=== PATIENT | female | born 1955 | race Two or more races ===

== ENCOUNTER 2017-06-26 23:47 | Inpatient (IN) | payer OTHER ==
[2017-06-27] MEDS ORDERED: NTG 50 MG/D5W250 ML BOTTL 250 ML IV ONE ×2 (00:07→00:30)
[2017-06-27] MEDS ORDERED: NITROGLYCERIN 0.4 MG/TAB BOTTLE ONE (00:07)
[2017-06-27] MEDS ORDERED: FUROSEMIDE 40 MG/4 ML VIAL ONE (00:27)
[2017-06-27] MEDS ORDERED: FUROSEMIDE 40 MG/4 ML VIAL IV ONE (00:30)
[2017-06-27] MEDS ORDERED: ASPIRIN 325 MG TABLET PO ONE (00:30)
[2017-06-27] MEDS ORDERED: NITROGLYCERIN 0.4 MG/TAB BOTTLE SL ONE (00:30)
[2017-06-27] MEDS ORDERED: HYDR-552 PO (00:36)
[2017-06-27] MEDS ORDERED: DIAZ5TAB4 PO (00:36)
[2017-06-27] MEDS ORDERED: DIVA500T7 PO (00:36)
[2017-06-27] MEDS ORDERED: MULT-1094 PO (00:36)
[2017-06-27] MEDS ORDERED: TAMS0.4C34 PO (00:36)
[2017-06-27] MEDS ORDERED: LEVO25TA7 PO (00:36)
[2017-06-27] MEDS ORDERED: MELO-264 PO (00:36)
[2017-06-27] MEDS ORDERED: MULT-1160 PO (00:36)
[2017-06-27] MEDS ORDERED: ATEN50TA PO (00:36)
[2017-06-27] MEDS ORDERED: PROPOFOL 100 ML IV ONE ×2 (00:47→01:00)
[2017-06-27] MEDS ORDERED: FENTANYL PF 100MCG/2ML AMPUL ONE (00:47)
[2017-06-27] MEDS ORDERED: ROCURONIUM BROMIDE 100 MG/10 ML VIAL IV ONE (01:00)
[2017-06-27] MEDS ORDERED: ETOMIDATE 2 MG/ML VIAL IV ONE ×2 (01:00→09:21)
[2017-06-27] MEDS ORDERED: ASPIRIN 300 MG/SUPP.RECT RC SCH (01:00)
[2017-06-27] MEDS ORDERED: FENTANYL PF 100MCG/2ML AMPUL IV ONE (01:00)
[2017-06-27] MEDS ORDERED: IV NS 0.9% 1,000 ML BAG IV ONE (01:30)
[2017-06-27] MEDS ORDERED: ASPIRIN 300 MG/SUPP.RECT RC ONE (01:40)
[2017-06-27] MEDS ORDERED: MORPHINE SULFATE INJ 2 MG/ML DISP.SYRIN IV PRN ×3 (02:30→10:30)
[2017-06-27] MEDS ORDERED: ONDANSETRON HCL/PF 4 MG/2 ML VIAL IVP PRN (02:30)
[2017-06-27] MEDS ORDERED: ACETAMINOPHEN 650 MG/SUPP.RECT RC PRN (02:30)
[2017-06-27] MEDS ORDERED: Z GUARD REMEDY 2 OZ OINT TP PRN (02:30)
[2017-06-27] MEDS ORDERED: BUMETANIDE INJ 8 MG in IV NS 0.9% 48 ML IV ONE (02:30)
[2017-06-27] MEDS ORDERED: POTASSIUM CHLORIDE 20 MEQ POWDER PACKET NG ONE (03:00)
[2017-06-27] MEDS ORDERED: METOPROLOL TARTRATE INJ 5 MG/5 ML AMPUL IVP PRN (03:00)
[2017-06-27] MEDS ORDERED: BUMETANIDE INJ 0.25 MG/ML VIAL ONE ×2 (03:07→03:08)
[2017-06-27] MEDS ORDERED: ENOXAPARIN SODIUM 80 MG/0.8 ML DISP.SYRIN SQ ONE (03:07)
[2017-06-27] MEDS ORDERED: POTASSIUM CHLORIDE 20 MEQ POWDER PACKET ONE (03:08)
[2017-06-27] MEDS: ENOXAPARIN SODIUM 80 MG/0.8 ML DISP.SYRIN SQ SCH ×3 (03:10→21:45)
[2017-06-27] MEDS: PROPOFOL 100 ML IV PRN ×3 (03:12→13:44)
[2017-06-27] MEDS ORDERED: NITROGLYCERIN PACKET 1 GM PACKET ONE (05:16)
[2017-06-27] MEDS ORDERED: DOBUTamine 250 MG in IV D5W 230 ML IV PRN (05:30)
[2017-06-27] MEDS ORDERED: DOBUTamine 12.5 MG/ML VIAL IV ONE ×2 (05:33→05:58)
[2017-06-27] MEDS ORDERED: NITROGLYCERIN PACKET 1 GM PACKET TOP SCH (06:00)
[2017-06-27] MEDS ORDERED: DoBUTamine 500 MG/250 ML PIGGYBACK IV PRN (06:00)
[2017-06-27] MEDS ORDERED: NOREPINEPHRINE 4 MG/4 ML AMPUL IV ONE ×2 (06:37→06:41)
[2017-06-27] MEDS: NOREPINEPHRINE 16 MG in IV D5W 500 ML IV PRN ×3 (06:44→17:17)
[2017-06-27] MEDS ORDERED: DOBUTamine 500 MG in IV D5W 210 ML IV PRN (07:30)
[2017-06-27] MEDS: PANTOPRAZOLE 40 MG VIAL IV SCH (08:13)
[2017-06-27] MEDS: LEVOTHYROXINE SODIUM 25 MCG TABLET NG SCH (08:13)
[2017-06-27] MEDS ORDERED: ASPIRIN 81 MG TAB.CHEW GT SCH (09:00)
[2017-06-27] MEDS: Magnesium 1GM/D5W 100ML PREMIX 100 ML IV SCH ×2 (09:12→10:18)
[2017-06-27] MEDS ORDERED: ROCURONIUM BROMIDE 50 MG/5 ML IV ONE (09:21)
[2017-06-27] MEDS ORDERED: BUMETANIDE INJ 4 MG in IV NS 0.9% 24 ML IV ONE (10:00)
[2017-06-27] MEDS ORDERED: Magnesium 1GM/D5W 100ML PREMIX 100 ML IV SCH (10:00)
[2017-06-27] MEDS ORDERED: VANCOMYCIN 1 GM in IV D5W 250 ML IV ONE (10:00)
[2017-06-27] MEDS ORDERED: PANTOPRAZOLE 40 MG VIAL IV SCH (10:00)
[2017-06-27] MEDS ORDERED: BUMETANIDE INJ 1 MG in IV NS 0.9% 40 ML IV ONE (10:00)
[2017-06-27] MEDS ORDERED: LEVOFLOXACIN 500 MG /D5W 100ML 500 MG in PREMIX 1 EA IV ONE (10:00)
[2017-06-27] MEDS ORDERED: DOPamine 800 MG in IV D5W 250 ML IV PRN (10:30)
[2017-06-27] MEDS ORDERED: ZOSYN IVPB 3.375 G in IV D5W 50ml IV SCH (11:00)
[2017-06-27] MEDS: PHENYLEPHRINE 80 MG in IV D5W 250 ML IV PRN ×3 (12:03→21:46)
[2017-06-27] MEDS: MORPHINE SULFATE INJ 4 MG/ML DISP.SYRIN IV PRN ×3 (12:43→19:20)
[2017-06-27] MEDS: PIPERACILLIN /TAZOBACTAM 3.375 G in IV D5W 50 ML IV SCH ×3 (12:48→23:59)
[2017-06-27] MEDS: VASOPRESSIN INJ 50 UNIT in IV D5W 497.5 ML IV PRN (12:48)
[2017-06-27] MEDS ORDERED: FEE PK DOSING 1 MIN EA MC ONE (13:17)
[2017-06-27] MEDS: HYDROCORTISONE SOD SUCCINATE 100 MG/2 ML VIAL IV SCH ×2 (13:33→16:52)
[2017-06-27] MEDS ORDERED: IV NS 0.9% 500 ML IV ONE (14:00)
[2017-06-27] MEDS: VANCOMYCIN 0.75 GM in IV D5W 250 ML IV SCH (21:46)
[2017-06-27] MEDS ORDERED: TAMSULOSIN 0.4 MG CAP.SR.24H NG SCH (22:00)
[2017-06-28] MEDS: PHENYLEPHRINE 80 MG in IV D5W 250 ML IV PRN ×5 (02:18→20:29)
[2017-06-28] MEDS: PROPOFOL 100 ML IV PRN ×6 (04:18→22:52)
[2017-06-28] MEDS: PIPERACILLIN /TAZOBACTAM 3.375 G in IV D5W 50 ML IV SCH ×2 (05:17→12:05)
[2017-06-28] MEDS: VANCOMYCIN 0.75 GM in IV D5W 250 ML IV SCH (09:27)
[2017-06-28] MEDS ORDERED: LEVOFLOXACIN 250 MG /D5W 50 ML 250 MG in PREMIX 1 EA IV SCH (10:00)
[2017-06-28] MEDS: VASOPRESSIN INJ 50 UNIT in IV D5W 497.5 ML IV PRN (10:34)
[2017-06-28] MEDS: MORPHINE SULFATE INJ 4 MG/ML DISP.SYRIN IV PRN (10:37)
[2017-06-28] MEDS: PANTOPRAZOLE 40 MG VIAL IV SCH (10:38)
[2017-06-28] MEDS: LEVOTHYROXINE SODIUM 25 MCG TABLET NG SCH (10:38)
[2017-06-28] MEDS: HYDROCORTISONE SOD SUCCINATE 100 MG/2 ML VIAL IV SCH ×3 (10:38→16:20)
[2017-06-28] MEDS ORDERED: IV NS 0.9% 500 ML IV ONE (13:30)
[2017-06-28] MEDS ORDERED: SODIUM BICARBONATE SYR 50 MEQ/50 ML DISP.SYRIN IV ONE (15:00)
[2017-06-28] MEDS: NOREPINEPHRINE 16 MG in IV D5W 500 ML IV PRN ×2 (15:04→23:03)
[2017-06-28] MEDS ORDERED: MEROPENEM 500 MG in IV NS 0.9% 50 ML IV SCH ×2 (15:18→16:00)
[2017-06-28] MEDS ORDERED: LACTOBACILLUS RHAMNOSUS GG 1 EACH CAP.SPRINK PO SCH (17:00)
[2017-06-28] MEDS ORDERED: MUPIROCIN OINT 2% 22 GM TUBE SCH (21:00)
[2017-06-28] MEDS ORDERED: EPINEPHRINE (1:10,000) SYRINGE 1 MG/10 ML DISP.SYRIN IVP ONE ×2 (23:21→23:22)
[2017-06-29] MEDS ORDERED: VANCOMYCIN 0.75 GM in IV D5W 250 ML IV SCH ×2
== END 2017-06-28 23:22 | disposition expired | DRG 720 ==
DX: A41.9 Sepsis, unspecified organism (principal); I21.4 Non-ST elevation (NSTEMI) myocardial infarction; J96.01 Acute respiratory failure with hypoxia; K72.00 Acute and subacute hepatic failure without coma; N17.0 Acute kidney failure with tubular necrosis; G93.41 Metabolic encephalopathy; J69.0 Pneumonitis due to inhalation of food and vomit; R65.21 Severe sepsis with septic shock; E03.9 Hypothyroidism, unspecified; F31.9 Bipolar disorder, unspecified; I11.0 Hypertensive heart disease with heart failure; R74.0 Nonspecific elevation of levels of transaminase and lactic acid dehydrogenase [LDH]; E83.42 Hypomagnesemia; E87.1 Hypo-osmolality and hyponatremia; E83.39 Other disorders of phosphorus metabolism; E44.0 Moderate protein-calorie malnutrition; D72.828 Other elevated white blood cell count; I50.1 Left ventricular failure, unspecified; H57.02 Anisocoria; I50.33 Acute on chronic diastolic (congestive) heart failure; Z68.26 Body mass index [BMI] 26.0-26.9, adult; F03.90 Unspecified dementia, unspecified severity, without behavioral disturbance, psychotic disturbance, mood disturbance, and anxiety